=== PATIENT | male | born 1980 | race Caucasian/White ===

== ENCOUNTER 2016-04-10 09:30 | Emergency (ER) | payer OTHER ==
[~2016-04-10] VITALS: Ht 170.2 cm; Wt 72.7 kg
[~2016-04-10 09:30] MED LIST: CLIN-78 PO; INDO50CA PO; PRE20 PO; RISP1TAB3 PO; RISP1TAB90 PO
[2016-04-10 09:44] VITALS: BP 135/79; PULSE 80; RESP 16; O2SAT 98
--- NOTE | 2016-04-10 09:50 | ED.REPORT ---
HPI-Extremity Problem Lower Date of Service Apr 10, 2016 ED Provider: Neena Andrews MD Pt is a 35 y/o male presenting to the ED c/o left foot pain onset today. The pt is homeless and [place] running [place] for a reason he does not know and believes he stepped in some thorns and wasn't able to remove them all. He c/o associated erythema over the area. He denies fever, chills, numbness or weakness of the feet. Nursing Notes Stated Complaint: CUTS ON LEFT FOOT, PAIN Chief Complaint: Extremity Trauma Nursing Notes Reviewed: Yes Allergies: Coded Allergies: No Known Allergies (Verified Allergy, Unknown, 04/10/16) Scheduled Clindamycin (Clindamycin) 300 Mg Capsule 300 MG PO QID Indomethacin (Indomethacin) 50 Mg Capsule 50 MG PO TID Indomethacin (Indomethacin) 50 Mg Capsule 50 MG PO TID Prednisone (PredniSONE) 20 Mg Tablet 60 MG PO DAILY Prednisone (PredniSONE) 20 Mg Tablet 60 MG PO DAILY Risperidone (Risperdal) 1 Mg Tablet 1 MG PO BID Risperidone (Risperidone) 1 Mg Tablet 1 MG PO BID Scheduled PRN Bacitracin (Bacitracin Ointment) 28.4 Gm Oint...g. 1 APPLIC TP PRN PRN PRN blisters use on toe blisters daily. 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 Physical Exam Initial Vital Signs Vital Signs (First) Date Time Temp Pulse Resp B/P Pulse Ox O2 Delivery O2 Flow Rate FiO2 04/10/16 09:44 36.4 80 16 135/79 98 Room Air Initial VS: Reviewed ENT: No scleral icterus Neck: Supple, Full range of motion Respiratory: No respiratory distress Cardiovascular: Intact distal pulses Abdomen / GI: Soft Skin: Warm, No cyanosis Neurologic: Alert, Oriented, Nonfocal Psychiatric: Mood/affect normal, Behavior normal, Normal thought content Lower Extremity / Pelvis / MS: No deformity, Neurologic intact, Vascular intact , No compartment syndrome Ankle / Foot: No deformity, Neurologic intact, Vascular intact, No ligamentous injury, No compartment syndrome, No circumferential injury, No edema Left foot second toe: blister over lateral aspect with surrounding erythema Outer edge of left foot: 1.5 cm superficial laceration without infection or drainage. Left heel: small blister that is ruptured. No erythema, some drainage. Right 4th toe: blister over the ventral surface of the toe. General/Constitutional: Awake, Alert, No acute distress, Cooperative, Not toxic appearing Head / Eyes: Atraumatic, Normocephalic Left eye missing from prior trauma Re-Eval/Medical Decision Re-Evaluation/Progress : Time of Eval: 10:17 Re-Evaluation/Progress Note: Pt rechecked. Informed pt of plan for treatment. Pt understands and agrees with plan for treatment. F/U instructions and RTER warnings given. All questions addressed. Counseled Regarding: Diagnosis, Need for follow-up, When/why to return to ED Discharge & Departure Impression: Primary Impression: Blister of second toe of left foot Encounter type: initial encounter Qualified Code: S90.425A - Blister ( nonthermal), left lesser toe(s), initial encounter Additional Impressions: Blister of fourth toe of right foot Encounter type: initial encounter Qualified Code: S90.424A - Blister ( nonthermal), right lesser toe(s), initial encounter Abrasion foot/toe Disposition: Home Discharge Condition All VS Reviewed: Yes Condition: Stable Patient Instructions: Acute Wound Care (ED) Additional Instructions: I'm sorry you have some blisters and small cuts on your feet. Unfortunately an expected consequence of wandering around the [place] barefoot. You were able to clean your feet well here, and had a good start even before you got here. Picking out all the stickers was a good thing to do. Wearing the shoes you have will help your feet heal. Use a bit of antibiotic ointment and a bandaid to help the sore toe on the left. this, along with some ibuprofen, was sent to [facility] electronically for you today Good luck Referrals: KIM DEE (PCP) oJy Attestation Portions of this note were transcribed by Luis Wood. I, Dr. Andrews personally performed the history, physical exam and medical decision-making; I reviewed and confirmed the accuracy of the information in the transcribed note. Signed by Joy Moses, 04/10/16 - 10:30 copies to: KIM DEE Shawna L MD Apr 10, 2016 09:50 LUIS WOOD Apr 10, 2016 09:56
[2016-04-10] MEDS ORDERED: IBUP-1827 PO (10:14)
[2016-04-10] MEDS ORDERED: BACI28.4 TP (10:14)
== END 2016-04-10 10:30 | disposition home or self-care (01) ==
LOC: SED 09:30
DX: S90.425A Blister (nonthermal), left lesser toe(s), initial encounter (principal); S90.424A Blister (nonthermal), right lesser toe(s), initial encounter; S91.312A Laceration without foreign body, left foot, initial encounter; W60.XXXA Contact with nonvenomous plant thorns and spines and sharp leaves, initial encounter; Y92.828 Other wilderness area as the place of occurrence of the external cause; Y93.02 Activity, running; Y99.8 Other external cause status; F17.200 Nicotine dependence, unspecified, uncomplicated; Z59.0 Homelessness

== ENCOUNTER 2016-04-13 10:55 | Emergency (ER) | payer OTHER ==
[~2016-04-13] VITALS: Ht 170.2 cm; Wt 72.7 kg
[~2016-04-13 10:55] MED LIST changes: +BACI28.4 TP; +IBUP-1827 PO
[2016-04-13 10:58] VITALS: BP 149/91; PULSE 103; RESP 16; O2SAT 97
--- NOTE | 2016-04-13 11:03 | ED.REPORT ---
HPI-Extremity Problem Lower Date of Service Apr 13, 2016 ED Provider: Lopez Regan MD The patient is a 35 year old homeless male with history of gout who presents to the emergency department requesting a wound recheck. He states that he would like someone to make sure his feet are healing okay. He was seen in the emergency department 3 days ago for multiple wounds to the bottom of his feet. Per previous note the patient was running barefoot in the [place] for an unknown reason. Nursing Notes Stated Complaint: FOOT PAIN Chief Complaint: Wound Recheck/Suture Removal Nursing Notes Reviewed: Yes Allergies: Coded Allergies: No Known Allergies (Verified Allergy, Unknown, 04/10/16) Scheduled Clindamycin (Clindamycin) 300 Mg Capsule 300 MG PO QID Indomethacin (Indomethacin) 50 Mg Capsule 50 MG PO TID Indomethacin (Indomethacin) 50 Mg Capsule 50 MG PO TID Prednisone (PredniSONE) 20 Mg Tablet 60 MG PO DAILY Prednisone (PredniSONE) 20 Mg Tablet 60 MG PO DAILY Risperidone (Risperdal) 1 Mg Tablet 1 MG PO BID Risperidone (Risperidone) 1 Mg Tablet 1 MG PO BID Scheduled PRN Bacitracin (Bacitracin Ointment) 28.4 Gm Oint...g. 1 APPLIC TP PRN PRN PRN blisters use on toe blisters daily. 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 Physical Exam Initial Vital Signs Vital Signs (First) Date Time Temp Pulse Resp B/P Pulse Ox O2 Delivery O2 Flow Rate FiO2 04/13/16 10:58 36.7 103 16 149/91 97 Room Air Initial VS: Reviewed Head / Eyes: Atraumatic, Normocephalic, PERRL ENT: Mucous membranes moist, Conjunctiva normal, No scleral icterus Neck: Supple, Non-tender, Full range of motion Respiratory: Breath sounds normal, Clear to auscultation, No respiratory distress Cardiovascular: Regular rate & rhythm, Heart sounds normal, Intact distal pulses Abdomen / GI: Soft, Non-tender, No guarding, No rebound, No distention Lymphatic: No lymphadenopathy Upper Extremities: Vascular intact, Neuro intact, No swelling, No tenderness Skin: Warm, Dry, No cyanosis Neurologic: Alert, Oriented, Nonfocal Psychiatric: Mood/affect normal, Behavior normal, Normal thought content Lower Extremity / Pelvis / MS: Neurologic intact, Vascular intact Ankle / Foot: Neurologic intact, Vascular intact General/Constitutional: Awake, Alert, No acute distress, Cooperative Re-Eval/Medical Decision Source of Hx: Old records Counseled Regarding: Diagnosis, Need for follow-up, When/why to return to ED Discharge & Departure Impression: Primary Impression: Encounter for wound re-check Disposition: Home Discharge Condition All VS Reviewed: Yes Condition: Stable Additional Instructions: Thank you for seeking care at the emergency room. It is difficult for us to make definitive diagnoses in the ED but we believe that you are experiencing . Our primary goal today in the ED was to evaluate you for any life-threatening conditions. Your evaluation was reassuring. You will be discharged with a prescription for . You should follow-up with your primary doctor in the next week. You should return to the ED immediately if you develop fevers, vomiting, cough, shortness of breath, chest pain, lightheadedness, weakness or any other concerning signs or symptoms. Thank you for letting us partake in your care today. Referrals: KIM DEE (PCP) Carrieibshama Attestation Portions of this note were transcribed by Natasha Her. I, Dr. Regan personally performed the history, physical exam and medical decision-making; I reviewed and confirmed the accuracy of the information in the transcribed note. Signed by: Joy Cronin, 04/13/2016 and [Time]. copies to: KIM DEE Beck O MD Apr 13, 2016 11:02 Natasha Her Apr 13, 2016 11:09
--- NOTE | 2016-04-13 11:05 | ED.REPORT ---
HPI-Extremity Problem Lower Date of Service Apr 13, 2016 ED Provider: Flaquita Barton History of Present Illness: still with feet pain, homeless. primary care is no one. used ibuprofen, worked but is out of ibuprofen. has area of focal tenderness on left foot Nursing Notes Stated Complaint: FOOT PAIN Chief Complaint: Wound Recheck/Suture Removal Nursing Notes Reviewed: Yes Allergies: Coded Allergies: No Known Allergies (Verified Allergy, Unknown, 04/10/16) Scheduled Clindamycin (Clindamycin) 300 Mg Capsule 300 MG PO QID Indomethacin (Indomethacin) 50 Mg Capsule 50 MG PO TID Indomethacin (Indomethacin) 50 Mg Capsule 50 MG PO TID Prednisone (PredniSONE) 20 Mg Tablet 60 MG PO DAILY Prednisone (PredniSONE) 20 Mg Tablet 60 MG PO DAILY Risperidone (Risperdal) 1 Mg Tablet 1 MG PO BID Risperidone (Risperidone) 1 Mg Tablet 1 MG PO BID Scheduled PRN Bacitracin (Bacitracin Ointment) 28.4 Gm Oint...g. 1 APPLIC TP PRN PRN PRN blisters use on toe blisters daily. 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 Hx of gout History of psychosis Past Surgical History denies Family History Noncontributory Smoking History Current Every Day Smoker Social History Alcohol Use: "Social" Drug Use: Meth, THC, Other Other Social History: Poor social support, Local resident, Homeless Ambulatory Status Independent Review of Systems Basic Review of Systems Eyes: Vision NL, No discharge ENT: Hearing NL, No pain, No nasal congestion, No pharyngeal pain Respiratory: No shortness of breath, No cough, No wheeze Cardiovascular: No chest pain, No dyspnea on exertion, No orthopnea, No parox noct dyspnea, No palpitations GI: No abdominal pain, No anorexia, No nausea, No vomiting : No dysuria, No frequency Hematologic: No bleeding, No bruising Endocrine: No cold intolerance, No heat intolerance, No weight gain, No weight loss Allergy / Immune: No allergy Psychiatric: Normal thought content Physical Exam Initial Vital Signs Vital Signs (First) Date Time Temp Pulse Resp B/P Pulse Ox O2 Delivery O2 Flow Rate FiO2 04/13/16 10:58 36.7 103 16 149/91 97 Room Air Initial VS: Reviewed, Vital signs normal General/Constitutional: Well-developed, Well-nourished Head / Eyes: Atraumatic, Normocephalic, PERRL ENT: Mucous membranes moist, Conjunctiva normal, No scleral icterus Neck: Supple, Non-tender, Full range of motion Respiratory: Breath sounds normal, Clear to auscultation, No respiratory distress Cardiovascular: Regular rate & rhythm, Heart sounds normal, Intact distal pulses Abdomen / GI: Soft, Non-tender, No guarding, No rebound, No distention Back: No CVA tenderness Lymphatic: No lymphadenopathy Upper Extremities: Vascular intact, Neuro intact, No swelling, No tenderness Skin: Warm, Dry, No cyanosis Neurologic: Alert, Oriented, Nonfocal Psychiatric: Mood/affect normal, Behavior normal, Normal thought content Lower Extremity / Pelvis / MS: Atraumatic, Inspection NL, Full range of motion , No swelling left foot has area on heel that appears to be draining. Skin is trimmed and a small piece of glass is removed. General/Constitutional: Awake, Alert, No acute distress Respiratory / Chest: Atraumatic, Breath sounds NL, Breath sounds = bilat, No respiratory distress Cardiovascular: Heart rate NL, Regular rhythm, Heart sounds NL, No gallop Procedures Procedure Notes: exam of left foot indicates on heel area draining area. Skin is trimmed with 11 blade and a small piece of glass is removed without difficulty. Both feet soaked. FB Removal - Tick / Stinger Time: 11:15 Procedure Performed by: Allied health pract Re-Eval/Medical Decision Med Decision/Clinical Course small piece of glass removed. Pateint reporting foot feels much better walking on it . Lidocaine applied to site and covered with a bandaid Discharge & Departure Impression: Primary Impression: Foreign body (FB) in soft tissue Patient Instructions: Soft Tissue Foreign Body (ED) Additional Instructions: There was a very small piece of glass removed from your foot. You can apply lidocaine to the site to help with discomfort, also bacitracin will help resolve any remaining infection. The discomfort should be mostly resolved in 1 to 2 days. Please establish in primary care, consider [facility]. Return with any concerns. You are being provided a prescription of ibuprofen . Referrals: KIM DEE CLIN (PCP) EDSupervising Provider for APC: Low Poe MD copies to: [facility] Flaquita Barton Apr 13, 2016 11:05
[2016-04-13] MEDS ORDERED: Lidocaine 2% 5 mL Urojet Topical Jelly Syringe TOPICAL ONE (11:20)
== END 2016-04-13 12:15 | disposition home or self-care (01) ==
LOC: SED 10:55
DX: M79.5 Residual foreign body in soft tissue (principal); F17.200 Nicotine dependence, unspecified, uncomplicated; Z18.81 Retained glass fragments; Z59.0 Homelessness

== ENCOUNTER 2016-04-18 16:44 | Emergency (ER) | payer OTHER ==
[2016-04-18 16:51] VITALS: BP 120/62; PULSE 95; RESP 18; O2SAT 99
--- NOTE | 2016-04-18 17:01 | ED.REPORT ---
HPI-General Illness Date of Service Apr 18, 2016 ED Provider: Lopez Regan MD Pt is a 35 y/o homeless male w/ a hx of mental illness presenting to the ED via EMS c/o bilateral feet sores and pain which are chronic. The patient is homeless and states that his feet hurt because of blisters and wet socks/shoes. He has no other specific complaints at this time. Nursing Notes Stated Complaint: EMOTIONAL DISTRESS Chief Complaint: Extremity Trauma Nursing Notes Reviewed: Yes Allergies: Coded Allergies: No Known Allergies (Verified Allergy, Unknown, 04/10/16) Scheduled Clindamycin (Clindamycin) 300 Mg Capsule 300 MG PO QID Clotrimazole 1% (Clotrimazole 1%) 30 Ml Solution 30 ML TOPICAL BID Indomethacin (Indomethacin) 50 Mg Capsule 50 MG PO TID Indomethacin (Indomethacin) 50 Mg Capsule 50 MG PO TID Prednisone (PredniSONE) 20 Mg Tablet 60 MG PO DAILY Prednisone (PredniSONE) 20 Mg Tablet 60 MG PO DAILY Risperidone (Risperdal) 1 Mg Tablet 1 MG PO BID Risperidone (Risperidone) 1 Mg Tablet 1 MG PO BID Scheduled PRN Bacitracin (Bacitracin Ointment) 28.4 Gm Oint...g. 1 APPLIC TP PRN PRN PRN blisters use on toe blisters daily. 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 Physical Exam Vital Signs Vital Signs Date Time Temp Pulse Resp B/P Pulse Ox O2 Delivery O2 Flow Rate FiO2 04/18/16 16:51 36.5 95 18 120/62 99 Room Air Initial VS: Reviewed, Vital signs normal ENT: Mucous membranes moist, Conjunctiva normal, No scleral icterus Neck: Supple, Full range of motion Respiratory: Breath sounds normal, Clear to auscultation, No respiratory distress Cardiovascular: Regular rate & rhythm, Heart sounds normal, Intact distal pulses Abdomen / GI: Soft Skin: Warm, Dry, No cyanosis Neurologic: Alert, Oriented, Nonfocal Psychiatric: Mood/affect normal, Behavior normal, Normal thought content General/Constitutional: Awake, Alert, No acute distress, Cooperative, Not toxic appearing Appearance / Presentation: Positive: Hygiene poor Head / Eyes: Atraumatic, Normocephalic Cataract left eye - chronic Lower Extremity / Pelvis / MS: Atraumatic, Full range of motion, No deformity, Neurologic intact, Vascular intact, No ligamentous injury, No compartment syndrome, No circumferential injury Maceration and cracking between toes consistent with a fungal infection Re-Eval/Medical Decision Med Decision/Clinical Course Pt is a 35 y/o homeless male w/ a hx of mental illness presenting to the ED via EMS c/o bilateral feet sores and pain which are chronic. The patient is homeless and states that his feet hurt because of blisters and wet socks/shoes. He has no other specific complaints at this time. Upon arrival the patient is afebrile stable vital signs and examination as above. He is somewhat disorganized and tangential though denies any suicidal or homicidal ideation. He does not wish to be seen by our emergency department older adult social work specialist and states that his only complaints today are his feet. Examination is consistent with tinea pedis. He was provided with new dry socks and clotrimazole was applied to his feet. He was prescribed clotrimazole. At this time, I see no other acute medical issues. The patient clearly has significant underlying mental health issues he seems uninterested in engaging in a mental health examination today. I see no indication that he represents any immediate harm to himself or others. Follow-up and return precautions were reviewed in detail and he was discharged in stable condition. Of note he did have an elevated breathalyzer though do not demonstrate significant clinical intoxication. He was able to safely ambulate in a straight line. The patient made a statement to nursing staff that he had called the ambulance to be taken here in order to get a free ride to [place]. Source of Hx: Old records, EMS Time of Eval: 17:18 Re-Evaluation/Progress Note: Pt rechecked. Informed pt of plan for treatment. Pt understands and agrees with plan for treatment. F/U and RTER warnings given. All questions addressed Counseled Regarding: Diagnosis, Need for follow-up, When/why to return to ED Discharge & Departure Primary Impression: Tinea pedis Laterality: bilateral Qualified Code: B35.3 - Tinea pedis Additional Impressions: Alcoholism Mental health disorder Homelessness Disposition: Home Discharge Condition All VS Reviewed: Yes Condition: Stable Patient Instructions: Tinea Pedis (ED) Additional Instructions: The condition of your feet is consistent with tinea pedis, a fungal infection of the skin. Follow-up with your primary care doctor next week. Try to change into dry socks daily. Return to the emergency department if you develop a high fever or for other medical emergencies. Referrals: KIM DEE (PCP) Joy Attestation Portions of this note were transcribed by Luis Wood. I, Dr. Regan personally performed the history, physical exam and medical decision-making; I reviewed and confirmed the accuracy of the information in the transcribed note. Signed by Joy Moses, 04/18/16 - [id number] copies to: KIM DEE Beck O MD Apr 18, 2016 17:01 LUIS WOOD Apr 18, 2016 17:08
[2016-04-18] MEDS ORDERED: CLOT30SO TOPICAL (17:18)
[2016-04-18 17:46] VITALS: BP 120/62; PULSE 95; RESP 18; O2SAT 99
== END 2016-04-18 17:49 | disposition home or self-care (01) ==
LOC: SED 16:44 → EDBD 16:44 → SED 17:49
DX: B35.3 Tinea pedis (principal); F10.20 Alcohol dependence, uncomplicated; F99 Mental disorder, not otherwise specified; F17.200 Nicotine dependence, unspecified, uncomplicated; Z59.0 Homelessness

== ENCOUNTER 2016-04-18 20:19 | Emergency (ER) | payer OTHER ==
[~2016-04-18] VITALS: Ht 172.7 cm; Wt 72.7 kg
[~2016-04-18 20:19] MED LIST changes: +CLOT30SO TOPICAL
[2016-04-18 20:52] VITALS: BP 142/86; PULSE 96; RESP 16; O2SAT 98
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
== END 2016-04-18 22:24 | disposition home or self-care (01) ==
LOC: SED 20:19
DX: M79.671 Pain in right foot (principal); M79.672 Pain in left foot; F29 Unspecified psychosis not due to a substance or known physiological condition; F17.200 Nicotine dependence, unspecified, uncomplicated; F15.10 Other stimulant abuse, uncomplicated; F12.10 Cannabis abuse, uncomplicated; Z59.0 Homelessness

== ENCOUNTER 2016-04-26 16:28 | Emergency (ER) | payer OTHER ==
[~2016-04-26] VITALS: Ht 172.7 cm; Wt 72.7 kg
[2016-04-26 16:35] VITALS: BP 124/74; PULSE 75; RESP 10; O2SAT 96
[2016-04-27] MEDS ORDERED: IBUP800T28 PO (13:47)
== END 2016-04-26 19:14 | disposition left against medical advice (07) ==
LOC: SED 16:28
DX: Z53.21 Procedure and treatment not carried out due to patient leaving prior to being seen by health care provider (principal)

== ENCOUNTER 2016-04-27 11:40 | Emergency (ER) | payer OTHER ==
[2016-04-27 11:43] VITALS: BP 126/81; PULSE 103; RESP 15; O2SAT 95
--- NOTE | 2016-04-27 13:07 | ED.REPORT ---
HPI-Extremity Problem Lower Date of Service Apr 27, 2016 ED Provider: Kishore Oates MD A homeless 35 year old male with a history of schizophrenia, bipolar disorder, smoking, and methamphetamine abuse presents to the ED complaining of a puncture wound on his left foot that is healing very slowly. The pt states that the puncture wound is continuously reopened due to frequent walking. He believes that he may have frostbite in the area as well. The pt removes his socks at night but states that this has not been helping. The pt was seen yesterday for similar complaints. Nursing Notes Stated Complaint: PAINFUL FEET Chief Complaint: Extremity Trauma Nursing Notes Reviewed: Yes Allergies: Coded Allergies: No Known Allergies (Verified Allergy, Unknown, 04/27/16) Scheduled Clindamycin (Clindamycin) 300 Mg Capsule 300 MG PO QID Clotrimazole 1% (Clotrimazole 1%) 30 Ml Solution 30 ML TOPICAL BID Indomethacin (Indomethacin) 50 Mg Capsule 50 MG PO TID Indomethacin (Indomethacin) 50 Mg Capsule 50 MG PO TID Prednisone (PredniSONE) 20 Mg Tablet 60 MG PO DAILY Prednisone (PredniSONE) 20 Mg Tablet 60 MG PO DAILY Risperidone (Risperdal) 1 Mg Tablet 1 MG PO BID Risperidone (Risperidone) 1 Mg Tablet 1 MG PO BID Scheduled PRN Bacitracin (Bacitracin Ointment) 28.4 Gm Oint...g. 1 APPLIC TP PRN PRN PRN blisters use on toe blisters daily. Ibuprofen (Ibuprofen) 600 Mg Tablet 600 MG PO QID PRN PRN For Pain Ibuprofen (Ibuprofen) 800 Mg Tablet 800 MG PO TID PRN PRN For Pain Indomethacin (Indomethacin) 50 Mg Capsule 50 MG PO TID PRN PRN For Pain Take with food General Time Seen by MD: 13:06 Chief Complaint Foot injury left Hx Obtained From: Patient Arrived By: Walk-in Onset Occurred: More than a week ago... 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 Cardiovascular: Denies: Chest pain GI: Denies: Abdominal pain Physical Exam Initial Vital Signs Vital Signs (First) Date Time Temp Pulse Resp B/P Pulse Ox O2 Delivery O2 Flow Rate FiO2 04/27/16 11:43 36.0 103 15 126/81 95 Room Air Initial VS: Reviewed Lower Extremity / Pelvis / MS: Atraumatic, Full range of motion Ankle / Foot: Full range of motion subacute superficial 5 mm ulcer at base of second phalanx on left foot no surrounding erythema or deep involvement no discharge or fluctuance General/Constitutional: Awake, Alert Respiratory / Chest: Atraumatic, Breath sounds NL, Breath sounds = bilat, No respiratory distress Cardiovascular: Heart rate NL, Regular rhythm, Heart sounds NL Skin: Color NL, Warm, Dry Neurologic: Oriented X3, Speech NL, No motor deficits, No sensory deficits Head / Eyes: Atraumatic, Normocephalic, PERRL, EOMI ENT: Atraumatic, Airway patent, Mucous membranes moist Neck: Atraumatic, Supple, Full range of motion Abdomen: Atraumatic, Soft, Non-tender Back: Atraumatic, Full range of motion Upper Extremity / MS: Atraumatic, Full range of motion Psychiatric: Affect NL, Mood NL Re-Eval/Medical Decision Med Decision/Clinical Course 35-year-old male history of schizophrenia, homelessness presenting complaining of sore to foot. As above, there is a superficial abrasion. There is no evidence of infection. Patient was given barrier cream to use twice a day. Recommended regular cleaning and checking for signs and symptoms of infection. Return precautions. Source of Hx: Old records Re-Evaluation/Progress : Time of Eval: 13:45 Patient Status: Condition improved Re-Evaluation/Progress Note: Pt rechecked, who is comfortable. Medications and the plan for discharge are discussed. The pt understands and agrees with the plan. All questions are addressed at this time. Counseled Regarding: Diagnosis, Need for follow-up, When/why to return to ED Discharge & Departure Impression: Primary Impression: Abrasion of foot, left Encounter type: initial encounter Qualified Code: S90.812A - Abrasion, left foot, initial encounter Disposition: Home Discharge Condition All VS Reviewed: Yes Condition: Stable Patient Instructions: Abrasion (ED) Additional Instructions: Keep the affected area clean and dry. Apply Aquaphor cream twice daily. Follow up with your primary care physician for further evaluation. Return to the ED if you develop any new or worsening symptoms including signs of infection (redness , swelling, discharge, or pus). Referrals: [facility] (PCP) Joy Attestation Portions of this note were transcribed by Kenn Arcos I, Dr. Oates personally performed the history, physical exam and medical decision-making; I reviewed and confirmed the accuracy of the information in the transcribed note. Signed by: Joy Ruiz, 04/27/16 and 13:43. copies to: K[facility] Ben M MD Apr 27, 2016 13:07 KENN ARCOS Apr 27, 2016 13:46
[2016-04-27] MEDS ORDERED: IBUP800T28 PO (13:47)
[2016-04-27 14:02] VITALS: BP 129/68; PULSE 72; RESP 17; O2SAT 98
== END 2016-04-27 13:47 | disposition home or self-care (01) ==
LOC: SED 11:40
DX: S90.812D Abrasion, left foot, subsequent encounter (principal); X50.3XXD Overexertion from repetitive movements, subsequent encounter; Y93.01 Activity, walking, marching and hiking; Y92.9 Unspecified place or not applicable; Y99.8 Other external cause status; F20.9 Schizophrenia, unspecified; F31.9 Bipolar disorder, unspecified; F15.10 Other stimulant abuse, uncomplicated; F17.200 Nicotine dependence, unspecified, uncomplicated; Z59.0 Homelessness